=== PATIENT | male | born 1945 | race Caucasian/White ===

== ENCOUNTER 2025-05-01 08:51 | Inpatient (IN) | payer MEDICARE, OTHER, SELFPAY ==
[2025-05-01] VITALS (29 sets, daily range): BP systolic 127–177; BP diastolic 74–110; PULSE 60–77; TEMP 36.5–36.8; O2SAT 94–99; BMI 20.1; BMI 21.0
--- NOTE | 2025-05-01 09:22 | XR_ITS ---
The [place] [id number] Patient Name: EMELY BETANCOURT MRN: [id number] date: 1945 Sex: M Assigned Patient Location: ER Current Patient Location: ER Accession/Order Number: [id number] Exam Date: 05/01/2025 09:25 Report Date: 05/01/2025 09:59 At the request of: OSBALDO TAI DO Procedure: XR chest 1V PORTABLE AP ERECT CHEST 0912 hours CLINICAL HISTORY: altered mental status and generalized weakness COMPARISON: None The heart is top normal in size. There is no vascular congestion. No consolidation is visualized. There is no effusion or pneumothorax. The bony structures are osteopenic. There is potential slight scoliotic curvature. XR/XR chest 1V IMPRESSION: NO ACUTE FINDINGS Impression dictated by: Caridad Dumas M.D. 05/01/2025 9:59 AM Dictation Location: [place] [address] Electronically authenticated by: [id number] Y Date: 05/01/2025 09:59
--- NOTE | 2025-05-01 09:22 | ECG_ITS ---
The [facility] Test Date: 2025-05-01 Pat Name: Twan Yoon Department: Room: - Gender: Male [employer] Drawer: : 1945 Requested By: [id number] Order Number: [id number] Reading MD: KAJAL NICE M.D. Measurements Intervals [place] Rate: 69 P: 67 MI: 194 QRS: 51 QRSD: 94 T: 63 QT: 398 QTc: 417 Interpretive Statements 1100 Sinus rhythm 9110 normal ECG No previous ECG available for comparison Electronically Signed On 05-01-2025 20:55:24 EST by KAJAL NICE M.D.
--- NOTE | 2025-05-01 09:22 | CT_ITS ---
The [address] [address] Patient Name: EMELY BETANCOURT MRN: [id number] date: 1945 Sex: M Assigned Patient Location: ER Current Patient Location: ER Accession/Order Number: [id number] Exam Date: 05/01/2025 09:25 Report Date: 05/01/2025 09:59 At the request of: OSBALDO TAI DO Procedure: CT stroke head/brain wo con CT BRAIN WITHOUT CONTRAST - stroke alert: CLINICAL HISTORY: altered mental status with confusion. Generalized weakness. COMPARISON: None TECHNIQUE: Contiguous axial unenhanced images were obtained through the brain. This CT exam was performed using one or more following dose reduction techniques: Automated exposure control, adjustment of the mA and/or kV according to patient size, or use of iterative reconstruction technique. FINDINGS: There is generalized atrophy. The ventricles are normal in size and position. Chronic microvascular changes are noted including an old left basal ganglia lacunar infarct. No obvious acute cortical infarct is seen. There is no hemorrhage, mass effect or extra-axial collections. There is mild ethmoid and minimal sphenoid mucosal thickening. The imaged mastoid air cells are clear. There is some carotid siphon and vertebral artery plaque. CT/CT stroke head/brain wo con IMPRESSION: ATROPHY AND CHRONIC MICROVASCULAR CHANGES. NO DEFINITE ACUTE INTRACRANIAL ABNORMALITY. FOLLOW-UP IS RECOMMENDED, SYMPTOMS WARRANT. Comment: Preliminary report was provided to Dr Salomon Najera at 0755 hours Impression dictated by: Caridad Dumas M.D. 05/01/2025 9:59 AM Dictation Location: [place] [address] Electronically authenticated by: [id number] Y Date: 05/01/2025 09:59
--- NOTE | 2025-05-01 09:25 | ED.AMS1 ---
HPI - Altered Mental Status General Chief Complaint: Altered Mental Status Stated Complaint: CVA LIKE SYMPTOMS Time Seen by Provider: 05/01/25 09:00 Source: patient and family Mode of arrival: Wheelchair History of Present Illness HPI narrative: NIH stroke scale 2 (points lost are for orientation. However, the patient does have dementia and this is his baseline) Last known well April 30, 2025 at 21:00. Patient is not a TNK candidate because he has presented greater than 4.5 hours since his last known well. In summary, the patient is a very pleasant 79-year-old gentleman who has a known past medical history of dementia. He is presenting with his daughter today because she perceives a difference in his mentation. She states he seems more confused than his normal baseline confusion. Every Tuesday, Tuesday, and Tuesday, the patient goes [facility]. The bus comes and picks him up. He knows that he is supposed to have had an gloves before he goes. She asked him to go get his gloves and he retrieved the slippers. Then, he asked where his cane was when he had it in his hand. Daughter states that she feels like his right side is weak because he is leaning to the right when he walks with his cane. Patient however states he is just all over a week. Patient had an unremarkable day yesterday. Now, he is mumbling more than normal. He did however eat a good breakfast. Related Data Home Medications ?Medication ?Instructions ?Recorded ?Confirmed buspirone 10 mg tablet 20 mg PO TID 05/01/25 05/01/25 donepezil 10 mg tablet 23 mg PO DAILY 05/01/25 05/01/25 lamotrigine 200 mg tablet mg 05/01/25 omeprazole 20 mg capsule,delayed mg 05/01/25 release quetiapine 200 mg tablet mg 05/01/25 sertraline 100 mg tablet mg 05/01/25 trazodone 100 mg tablet mg 05/01/25 Allergies Allergy/AdvReac Type Severity Reaction Status Date / Time No Known Drug Allergies Allergy Verified 05/01/25 09:01 Review of Systems ROS Narrative 10 Systems were reviewed, and unless noted in the HPI, all other systems are reviewed, unremarkable, or noncontributory. Exam Narrative Exam Narrative: Prior to examining the patient, I have washed with hospital approved and provided Antiseptic [employer] and have also applied gloves.? Prior to touching the patient, I asked for consent to examine the patient.? General: Alert and oriented to self and medical facility, well nourished, mild distress. Eye: PERRL, EOMI, normal conjunctiva. 2 mm and nonreactive on the right, 3 mm and reactive on the left. Patient is wearing glasses. HENT: Normocephalic, normal hearing, moist oral mucosa, no scleral icterus, no sinus tenderness. Neck: Supple, non-tender, no carotid bruits, no JVD, no lymphadenopathy. Lungs: Clear to auscultation and percussion, non-labored respiration. No rhonchi, rales, wheezing Heart: Normal rate, regular rhythm, no murmur, gallop or edema. Abdomen: Soft, non-tender, non-distended, normal bowel sounds, no masses. Musculoskeletal: Normal range of motion and strength, no tenderness or swelling. Skin: Skin is warm, dry and pink, no rashes or lesions. Neurologic: Awake, alert, and oriented X2, CN II-XII intact. NIH stroke scale 2 losing points for orientation. Psychiatric: Cooperative, appropriate mood and affect.? Following the conclusion of the examination, I have washed my hands thoroughly after removing examination gloves. Constitutional Vital Signs, click to edit/add: Last Vital Signs Temp 98.2 F 05/01/25 09:02 Pulse 69 05/01/25 09:41 Resp 16 05/01/25 09:41 BP 161/74 H 05/01/25 13:30 Pulse Ox 99 05/01/25 13:30 O2 Del Method Room Air 05/01/25 09:02 Course Course Hospital Course: In summary the patient is a 79-year-old male whom has acute onset of mental status changes. Is brought in by his daughter. Patient could potentially have a stroke versus an infectious etiology owing to his abrupt change in mentation. Therefore, the patient is getting blood work, urinalysis, and a CT scan of the head. Will also get a chest x-ray. CT scan of the head was negative. Chest x-ray is negative. Laboratories are unremarkable. Discussion with the hospitalist who is prospectively requested a CTA of the head and neck. These were negative. Patient was admitted for mental status change and weakness. Consultations Consultation #1: Discussed this case with the hospitalist who indicated if the CTA of the head and neck were negative for any obvious strokes that he would be happy to admit the patient here. Family updated by me. Time: 11:44 Consultation #2: CTA of the head and neck were negative. Therefore the patient can be admitted to the floor for mental status change and continued stroke workup. Time: 13:18 Vital Signs Vital signs: Vital Signs Temperature 98.2 F 05/01/25 09:02 Pulse Rate 77 05/01/25 09:02 Respiratory Rate 16 05/01/25 09:02 Blood Pressure 144/85 H 05/01/25 09:02 Pulse Oximetry 99 05/01/25 09:02 Oxygen Delivery Method Room Air 05/01/25 09:02 Temperature 98.2 F 05/01/25 09:02 Pulse Rate 69 05/01/25 09:41 Respiratory Rate 16 05/01/25 09:41 Blood Pressure 161/74 H 05/01/25 13:30 Pulse Oximetry 99 05/01/25 13:30 Oxygen Delivery Method Room Air 05/01/25 09:02 MDM - Altered Mental Status MDM Narrative Medical decision making narrative: The patient is a 79-year-old male presenting to the emergency department secondary to altered level of consciousness. Patient has had a history of dementia but has had a pronounced decline in his cognition and strength since 9 PM last night. Differential Diagnosis Differential diagnosis: Likely alcoholic intoxication, altered mental status, delirium, dementia, hypoglycemia, hyponatremia, subarachnoid hemorrhage, sepsis and OTHER (Stroke) Medical Records Attestation: I reviewed the patient's medical records. Lab Data Attestation: I reviewed the patient's lab results. Lab results narrative: CBC revealed no evidence of anemia or leukocytosis. Competence of metabolic panel revealed no electrolyte, kidney, or liver dysfunction. Patient's troponin is negative and urinalysis is negative. Labs: Lab Results 05/01/25 05/01/25 05/01/25 Range/Units 09:03 09:37 10:39 WBC 4.5 (4.0-11.0) 10^3/uL RBC 4.43 L (4.70-6.10) 10^6/uL Hgb 14.2 (14.0-18.0) g/dL Hct 43.0 (42.0-54.0) % MCV 97.1 H (80.0-94.0) fL MCH 32.1 (25.9-34.0) pg MCHC 33.0 (29.9-35.2) g/dL RDW 13.0 (11.0-15.0) % Plt Count 203 (150-450) 10^3/uL MPV 10.1 (9.5-13.5) fL Neut % (Auto) 63.5 (43.0-75.0) % Lymph % (Auto) 24.1 (20.5-60.0) % [place] % (Auto) 9.3 (1.7-12.0) % Eos % (Auto) 2.2 (0.9-7.0) % Baso % (Auto) 0.9 (0.2-2.0) % Neut # (Auto) 2.9 (1.4-6.5) 10^3/uL Lymph # (Auto) 1.1 L (1.2-3.8) 10^3/uL [place] # (Auto) 0.4 (0.3-0.8) 10^3/uL Eos # (Auto) 0.1 (0.0-0.7) 10^3/uL Baso # (Auto) 0.0 (0.0-0.1) 10^3/uL Abs Immat Gran (auto) 0.00 (0.00-0.03) 10^3/uL Imm/Tot Granulo (auto) 0.0 (0.0-0.5) % Sodium 145 (136-145) mmol/L Potassium 3.9 (3.5-5.1) mmol/L Chloride 106 (98-107) mmol/L Carbon Dioxide 32.3 H (21.0-32.0) mmol/L Anion Gap 10.6 BUN 18.0 (7.0-18.0) mg/dL Creatinine 0.97 (0.70-1.30) mg/dL Est GFR ( Amer) >60 (>=60 mL/min/1.73m^2) Est GFR (Non-Af Amer) >60 (>=60 mL/min/1.73m^2) BUN/Creatinine Ratio 18.6 Glucose 121 H (74-106) mg/dL Calcium 9.0 (8.5-10.1) mg/dL Total Bilirubin 0.5 (0.2-1.0) mg/dL AST 17 (15-37) U/L ALT 26 (16-63) U/L Alkaline Phosphatase 85 (46-116) U/L Troponin I High Sens 14.6 (4.0-76.1) pg/mL Total Protein 6.9 (6.4-8.2) g/dL Albumin 3.5 (3.4-5.0) g/dL Globulin 3.4 g/dL Albumin/Globulin Ratio 1.0 Urine Color Lt. yellow (YELLOW) Urine Clarity Clear (CLEAR) Urine pH 7.0 (5.0-9.0) Ur Specific [place] 1.020 (1.005-1.025) Urine Protein Negative (NEG/TRACE) mg/dL Urine Glucose (UA) Negative (NEGATIVE) mg/dL Urine Ketones Negative (NEGATIVE) mg/dL Urine Occult Blood Negative (NEGATIVE) Urine Nitrite Negative (NEGATIVE) Urine Bilirubin Negative (NEGATIVE) Urine Urobilinogen 0.2 (0.2-1.0) EU/dL Ur Leukocyte Esterase Negative (NEGATIVE) POC Glucose 111 H (74-106) mg/dL Imaging Data CT scan - head: Attestation: I have reviewed the pertinent imaging results. Radiologist's impression: ITS Impressions Brain CT 05/01/25 09:22 IMPRESSION: ATROPHY AND CHRONIC MICROVASCULAR CHANGES. NO DEFINITE ACUTE INTRACRANIAL ABNORMALITY. FOLLOW-UP IS RECOMMENDED, SYMPTOMS WARRANT. Comment: Preliminary report was provided to Dr Salomon Najera at 0755 hours Impression dictated by: Caridad Dumas M.D. 05/01/2025 9:59 AM Dictation Location: [employer] Electronically authenticated by: [id number] Y Date: 05/01/2025 09:59 Chest X-Ray 05/01/25 09:22 IMPRESSION: NO ACUTE FINDINGS Impression dictated by: Caridad Dumas M.D. 05/01/2025 9:59 AM Dictation Location: [employer] Electronically authenticated by: [id number] Y Date: 05/01/2025 09:59 Head CTA 05/01/25 11:43 IMPRESSION: No occlusion, critical stenosis or dissection of the extracranial or intracranial circulation. Impression dictated by: Matthew Bonilla M.D. 05/01/2025 12:43 PM Dictation Location: [facility] Electronically authenticated by: [id number] Y Date: 05/01/2025 12:43 Neck CTA 05/01/25 11:43 IMPRESSION: No occlusion, critical stenosis or dissection of the extracranial or intracranial circulation. Impression dictated by: Matthew Bonilla M.D. 05/01/2025 12:43 PM Dictation Location: [facility] Electronically authenticated by: [id number] Y Date: 05/01/2025 12:43 ECG Data Attestation: I personally reviewed and interpreted this ECG as follows: ECG interpretation date: 05/01/25 ECG interpretation time: 09:46 Interpretation: Twelve-lead EKG reveals a sinus rhythm with a ventricular rate of 69 bpm. The MS interval and QRS duration within normal limits. QTc is not prolonged. Drake is normal. No evidence of ST segment elevation or depression suggestive of infarction or ischemia. Summary: Normal EKG. Critical Care Time Critical Care Time Total Critical Care Time: 35 Attestation: 35 minutes of needed further treatment approach of clinically significant life-threatening mental status changes including stroke. Needed repeat physical examinations and lengthy discussion with the patient's daughter as well as the proposed admitting physicians. Discharge Plan Discharge Chief Complaint: Altered Mental Status Clinical Impression: Altered mental status Qualifiers: Altered mental status type: transient alteration of awareness Qualified Code(s): R40.4 - Transient alteration of awareness Dementia Qualifiers: Dementia type: unspecified type Dementia severity: unspecified severity Patient Disposition: Admitted as Observation Time of Disposition Decision: 13:20 Condition: Fair
[2025-05-01 09:45] LABS: Hematocrit 43.0 % (42.0-54.0); Hemoglobin 14.2 g/dL (14.0-18.0); Immature Granulocytes Abs Auto 0.00 10^3/uL (0.00-0.03); Immature Granulocytes Pct Auto 0.0 % (0.0-0.5); Lymphocytes Absolute Auto 1.1 10^3/uL (1.2-3.8); Mean Corpuscular HGB Conc 33.0 g/dL (29.9-35.2); Mean Corpuscular Hemoglobin 32.1 pg (25.9-34.0); Mean Corpuscular Volume 97.1 fL (80.0-94.0); Platelet Count 203 10^3/uL (150-450); Red Blood Count 4.43 10^6/uL (4.70-6.10); White Blood Count 4.5 10^3/uL (4.0-11.0)
[2025-05-01 10:06] LABS: Alanine Aminotransferase 26 U/L (16-63); Albumin Globulin Ratio 1.0; Albumin Level 3.5 g/dL (3.4-5.0); Alkaline Phosphatase 85 U/L (46-116); Anion Gap 10.6; Aspartate Amino Transferase 17 U/L (15-37); Blood Urea Nitrogen 18.0 mg/dL (7.0-18.0); Calcium 9.0 mg/dL (8.5-10.1); Carbon Dioxide 32.3 mmol/L (21.0-32.0); Chloride 106 mmol/L (98-107); Estimated GFR (African America >60 (>=60 mL/min/1.73m^2); Estimated GFR (Non-African Ame >60 (>=60 mL/min/1.73m^2); Globulin 3.4 g/dL; Glucose 121 mg/dL (74-106); Potassium 3.9 mmol/L (3.5-5.1); Sodium 145 mmol/L (136-145); Total Protein 6.9 g/dL (6.4-8.2)
[2025-05-01 10:46] LABS: Glucose Urine UA NEGATIVE (NEGATIVE)
--- NOTE | 2025-05-01 11:43 | CT_ITS ---
The [address] [address] Patient Name: EMELY BETANCOURT MRN: [id number] date: 1945 Sex: M Assigned Patient Location: ER Current Patient Location: Accession/Order Number: [id number] Exam Date: 05/01/2025 11:50 Report Date: 05/01/2025 12:43 At the request of: OSBALDO TAI DO Procedure: CT angio neck CTA Head and Neck TECHNIQUE: Axial imaging of the head and neck with 2-D and 3-D reconstruction. cc of Isovue-370. The CT exam was performed using one or more the following dose reduction techniques: Automated exposure control, adjustment of the MA and/or Kv according to patient size, or use of the iterative reconstruction technique. Stenoses were measured using the NASCET criteria. COMPARISON: None HISTORY: Increased confusion The visualized aortic arch and great vessels are unremarkable. Subclavian arteries are patent No carotid dissection, critical stenosis or occlusion identified. No vertebral dissection, occlusion or abrupt cut off identified. The carotid siphons and vertebral basilar systems are patent. Mild calcified plaquing. Minimal stenosis. No intracranial aneurysm, dissection, abrupt cut off or critical stenosis identified.. . CT/CT angio head IMPRESSION: No occlusion, critical stenosis or dissection of the extracranial or intracranial circulation. Impression dictated by: Matthew Bonilla M.D. 05/01/2025 12:43 PM Dictation Location: [place] [address] Electronically authenticated by: [id number] Y Date: 05/01/2025 12:43
--- NOTE | 2025-05-01 11:43 | CT_ITS ---
The [address] [address] Patient Name: EMELY BETANCOURT MRN: [id number] date: 1945 Sex: M Assigned Patient Location: ER Current Patient Location: Accession/Order Number: [id number] Exam Date: 05/01/2025 11:50 Report Date: 05/01/2025 12:43 At the request of: OSBALDO TAI DO Procedure: CT angio neck CTA Head and Neck TECHNIQUE: Axial imaging of the head and neck with 2-D and 3-D reconstruction. cc of Isovue-370. The CT exam was performed using one or more the following dose reduction techniques: Automated exposure control, adjustment of the MA and/or Kv according to patient size, or use of the iterative reconstruction technique. Stenoses were measured using the NASCET criteria. COMPARISON: None HISTORY: Increased confusion The visualized aortic arch and great vessels are unremarkable. Subclavian arteries are patent No carotid dissection, critical stenosis or occlusion identified. No vertebral dissection, occlusion or abrupt cut off identified. The carotid siphons and vertebral basilar systems are patent. Mild calcified plaquing. Minimal stenosis. No intracranial aneurysm, dissection, abrupt cut off or critical stenosis identified.. . CT/CT angio neck IMPRESSION: No occlusion, critical stenosis or dissection of the extracranial or intracranial circulation. Impression dictated by: Matthew Bonilla M.D. 05/01/2025 12:43 PM Dictation Location: [place] [address] Electronically authenticated by: [id number] Y Date: 05/01/2025 12:43
--- NOTE | 2025-05-01 13:32 | P.IMHP_ITS ---
Internal Medicine - H&P: HPI History of Present Illness Chief complaint: CVA LIKE SYMPTOMS STROKE LIKE SYMPTOMS Narrative: Twan Yoon is a 79 y/o M, h/o dementia on recently increased dose of donepezil, presented to [facility] on 05/01/2025 due to confusion and gait imbalance as noted by daughter, concern for stroke prompting request for mission for observation. On assessment at bedside on the regular nursing floor, patient resting comfortably in bed, is oriented to hospital but not situation or circumstances that prompted admission. He is able to articulate clearly and follow commands, agreeable to neurologic examination. History obtained from chart and discussion with daughter. Patient was at baseline mentation yesterday evening. which is not oriented to month or year but is able to conduct daily routines without assistance, this morning appeared to be confused, went to grab gloves prior to travel to [facility] but repeatedly grabbed slippers instead, blank expression in response to daughter, as well as leaning to right side during ambulation and slightly unclear speech. Daughter does note recent upper respiratory tract infection in household however no obvious fevers, chills, change in appetite, change in bowel habits. In the emergency room, WBC 4.5, hemoglobin 14.2, platelet count 203, sodium 145, potassium 3.9, BUN 18, creatinine 0.97, glucose 121, UA without evidence of infection, CT head and CTA imaging showed mild microvascular disease but no evidence of stroke or intracranial thrombus, chest x-ray was negative. Review of Systems ROS Status of ROS 10 or more systems reviewed and unremark able except as noted in history and below [facility] Social History Highest level of school completed/degree received: high school graduate Meds Home Medications and Allergies Home Medications ?Medication ?Instructions ?Recorded ?Confirmed ?Type buspirone 10 mg tablet 20 mg PO TID 05/01/25 History donepezil 23 mg tablet 23 mg PO BEDTIME 05/01/25 History lamotrigine 200 mg tablet 200 mg PO BEDTIME 05/01/25 1 07/02/24 History omeprazole 20 mg capsule,delayed 20 mg PO DAILY 05/01/25 History release quetiapine 200 mg tablet 200 mg PO BEDTIME 05/01/25 1 07/02/24 History sertraline 100 mg tablet 100 mg PO BEDTIME 05/01/25 1 07/02/24 History trazodone 100 mg tablet 100 mg PO BEDTIME 05/01/25 1 07/02/24 History Allergies Allergy/AdvReac Type Severity Reaction Status Date / Time No Known Drug Allergies Allergy Verified 05/01/25 09:01 Exam Narrative Exam Narrative: General: cooperative and tired appearing Orientation: alert, awake and oriented x2, to self and hospital, not to year, month, or reason for admission Head: normal to inspection Neck: normal visual inspection Cardio: no JVD, regular rate, regular rhythm Chest palpation & inspection: normal inspection of the chest Resp Effort & Inspection: normal respiratory effort Abd: soft, non-tender, non-distended Extremities: Warm well perfused, no edema Neuro: CN II-XII grossly intact, poor concentration but no clear nystagmus or neglect. No obvious facial droop, strength intact in all 4 extremities, no drift Constitutional Vital Signs, click to edit/add: Last Vital Signs Temp 98.2 F 05/01/25 09:02 Pulse 69 05/01/25 09:41 Resp 16 05/01/25 09:41 BP 127/77 05/01/25 10:31 Pulse Ox 97 05/01/25 10:50 O2 Del Method Room Air 05/01/25 09:02 Internal Medicine - H&P: Reslt Labs Labs: Short CBC 05/01/25 Range/Units 09:37 WBC 4.5 (4.0-11.0) 10^3/uL Hgb 14.2 (14.0-18.0) g/dL Hct 43.0 (42.0-54.0) % Plt Count 203 (150-450) 10^3/uL BMP 05/01/25 09:37 Sodium 145 Potassium 3.9 Chloride 106 Carbon Dioxide 32.3 H BUN 18.0 Creatinine 0.97 Glucose 121 H Calcium 9.0 Liver Function 05/01/25 Range/Units 09:37 Total Bilirubin 0.5 (0.2-1.0) mg/dL AST 17 (15-37) U/L ALT 26 (16-63) U/L Alkaline Phosphatase 85 (46-116) U/L Albumin 3.5 (3.4-5.0) g/dL Urine 05/01/25 Range/Units 10:39 Urine Color Lt. yellow (YELLOW) Urine Clarity Clear (CLEAR) Urine pH 7.0 (5.0-9.0) Ur Specific [place] 1.020 (1.005-1.025) Urine Protein Negative (NEG/TRACE) mg/dL Urine Glucose (UA) Negative (NEGATIVE) mg/dL Assessment and Plan Assessment and Plan (1) Dementia: Qualifiers: Dementia severity: unspecified severity Dementia type: unspecified type (2) Altered mental status: Qualifiers: Altered mental status type: transient alteration of awareness Qualified Code(s): R40.4 - Transient alteration of awareness (3) Hypertension: Plan Twan Yoon is a 79 y/o M, h/o dementia on recently increased dose of donepezil, presented to [facility] on 05/01/2025 due to confusion and gait imbalance as noted by daughter, concern for stroke prompting request for mission for observation. 1. Confusion and gait imbalance in setting of dementia 2. Uncontrolled hypertension - In the emergency room, WBC 4.5, hemoglobin 14.2, platelet count 203, sodium 145, potassium 3.9, BUN 18, creatinine 0.97, glucose 121, UA without evidence of infection, CT head and CTA imaging showed mild microvascular disease but no evidence of stroke or intracranial thrombus, chest x-ray was negative. - No clear neurologic deficits outside of reported baseline confusion/disorientation to year and month - Check TSH, lipid panel, A1c - start amlodipine 5 mg daily for hypertension - Check MRI brain and TTE - teleneurology consult given multiple dementia medications, continue for now but risk of polypharmacy - PT/OT evaluation Diet: regular Daily Labs: CBC, BMP Lines/Drains: PIV DVT ppx: Lovenox Code status: Full, discussed with daughter Cass Yoon Status: observation for stroke rule out, neurology evaluation
[2025-05-01 15:27] LABS: TSH W/ REFLEX FT4 1.510 uIU/mL (0.358-3.740)
[2025-05-01] MEDS: AMLODIPINE BESYLATE 5 MG TABLET PO (16:19)
[2025-05-01] MEDS: ENOXAPARIN SODIUM 40 MG/0.4 ML SYRINGE SUBQ (16:19)
[2025-05-01] MEDS: HYDROXYZINE PAMOATE 25 MG CAPSULE PO (16:19)
[2025-05-01] MEDS: TRAZODONE HCL 50 MG TABLET 100 MG PO (21:35)
[2025-05-01] MEDS: SERTRALINE HCL 100 MG TABLET PO (21:35)
[2025-05-01] MEDS: QUETIAPINE FUMARATE 100 MG TABLET 200 MG PO (21:36)
[2025-05-01] MEDS: DONEPEZIL HCL 10 MG TABLET 20 MG PO (21:36)
[2025-05-01] MEDS: BUSPIRONE HCL 10 MG TABLET 20 MG PO (21:37)
[2025-05-01] MEDS: LAMOTRIGINE 100 MG TABLET 200 MG PO (21:37)
[2025-05-02] VITALS (7 sets, daily range): BP systolic 115–152; BP diastolic 66–85; PULSE 61–80; TEMP 36.4–36.8; O2SAT 92–95; BMI 20.9
[2025-05-02 05:19] LABS: Hematocrit 39.3 % (42.0-54.0); Hemoglobin 13.0 g/dL (14.0-18.0); Immature Granulocytes Abs Auto 0.00 10^3/uL (0.00-0.03); Immature Granulocytes Pct Auto 0.0 % (0.0-0.5); Lymphocytes Absolute Auto 1.6 10^3/uL (1.2-3.8); Mean Corpuscular HGB Conc 33.1 g/dL (29.9-35.2); Mean Corpuscular Hemoglobin 31.7 pg (25.9-34.0); Mean Corpuscular Volume 95.9 fL (80.0-94.0); Platelet Count 206 10^3/uL (150-450); Red Blood Count 4.10 10^6/uL (4.70-6.10); White Blood Count 5.3 10^3/uL (4.0-11.0)
[2025-05-02 05:34] LABS: Anion Gap 8.1; Blood Urea Nitrogen 18.0 mg/dL (7.0-18.0); Calcium 8.7 mg/dL (8.5-10.1); Carbon Dioxide 29.9 mmol/L (21.0-32.0); Chloride 107 mmol/L (98-107); Cholesterol 217 mg/dL (<=200); Estimated GFR (African America >60 (>=60 mL/min/1.73m^2); Estimated GFR (Non-African Ame >60 (>=60 mL/min/1.73m^2); Glucose 103 mg/dL (74-106); HDL Cholesterol 76 mg/dL (40-60); Potassium 4.0 mmol/L (3.5-5.1); Sodium 141 mmol/L (136-145); Triglycerides 101 mg/dL (<=150); VLDL CHOLESTEROL 20.2 mg/dL
[2025-05-02] MEDS: PANTOPRAZOLE SODIUM 40 MG TABLET.DR PO (05:42)
[2025-05-02] MEDS: BUSPIRONE HCL 10 MG TABLET 20 MG PO ×3 (05:43→21:49)
[2025-05-02] MEDS: AMLODIPINE BESYLATE 5 MG TABLET PO (08:54)
--- NOTE | 2025-05-02 09:34 | MR_ITS ---
The [address] [address] Patient Name: EMELY BETANCOURT MRN: [id number] date: 1945 Sex: M Assigned Patient Location: [place] Current Patient Location: [place] Accession/Order Number: [id number] Exam Date: 05/02/2025 09:50 Report Date: 05/02/2025 11:37 At the request of: REKHA THOMPSON MD Procedure: MR head/brain wo con EXAMINATION: MRI OF THE BRAIN WITHOUT CONTRAST CLINICAL HISTORY: confusion, stroke-like symptoms COMPARISON: CT 05/01/2025 TECHNIQUE: Multiecho, multiplanar imaging of the brain was performed without enhancement. Generalized atrophy is noted. The ventricles are normal in size and position. Mild patchy areas of increased T2 and FLAIR signal are seen within the periventricular and subcortical white matter with extension into the basal ganglia region compatible with chronic microvascular disease. There are no additional areas of abnormal signal intensity within the supra- or infratentorial brain. No restricted diffusion is identified to suggest a recent ischemic event. There are no extra-axial collections or mass effect. There is bilateral maxillary and ethmoid mucosal thickening. MR/MR head/brain wo con IMPRESSION: ATROPHY AND CHRONIC MICROVASCULAR DISEASE. MILD CHRONIC SINUSITIS. NO ACUTE INTRACRANIAL FINDINGS. Impression dictated by: Caridad Dumas M.D. 05/02/2025 11:37 AM Dictation Location: [place] [address] Electronically authenticated by: [id number] Y Date: 05/02/2025 11:37
--- NOTE | 2025-05-02 10:30 | CM.NOTE ---
Rounds made with Dr. Ochoa, discussed plan of care with pt and daughter. PT and OT will evaluate pt for discharge planning. Awaiting MRI results and teleneuro consult for further recommendations.
--- NOTE | 2025-05-02 11:51 | NUTR.NU ---
Recommend nutritional supplement Boost or ensure 1 container po daily for additional nutritional support
--- NOTE | 2025-05-02 13:13 | P.IMPN_ITS ---
Progress Note: A&P Assessment and Plan (1) Dementia: Qualifiers: Dementia severity: unspecified severity Dementia type: unspecified type (2) Altered mental status: Qualifiers: Altered mental status type: transient alteration of awareness Qualified Code(s): R40.4 - Transient alteration of awareness (3) Hypertension: (4) Hypertensive encephalopathy: (5) Ataxia: Rani Yoon is a 79 y/o M, h/o dementia on recently increased dose of donepezil, presented to [facility] on 05/01/2025 due to confusion and gait imbalance as noted by daughter, concern for stroke prompting request for mission for observation. 1. Confusion and gait imbalance suspected 2/2 hypertensive encephalopathy - In the emergency room, WBC 4.5, hemoglobin 14.2, platelet count 203, sodium 145, potassium 3.9, BUN 18, creatinine 0.97, glucose 121, UA without evidence of infection, CT head and CTA imaging showed mild microvascular disease but no evidence of stroke or intracranial thrombus, chest x-ray was negative. - No clear neurologic deficits outside of reported baseline confusion/disorientation to year and month - Check TSH 1.510, lipid panel cholesterol 217, A1c 5.4 - continue amlodipine 5 mg daily for hypertension - MRI brain shows no acute event, did not tolerate entire study and as a result unable to r/o amyloid disease - teleneurology consulted and recommended EEG, repeat MRI as outpatient and follow up with neurology - given significant drop after initiation of blood pressure medication, will monitor additional day to ensure tolerance/assess need for dose reduction Diet: regular Daily Labs: CBC, BMP Lines/Drains: PIV DVT ppx: Lovenox Code status: Full, discussed with daughter Cass Yoon Status: inpatient for hemodynamic and mental status monitoring after initiation of anti-hypertensives Internal Medicine - PN: Subj Subjective Interval history: Completed MRI this am, did not tolerate complete study but enough to rule out acute ischemic event. Daughter at bedside, patient reports no changes in vision or mentation, does recall meeting me yesterday. Remains oriented to self and building but not time or season. Exam Narrative Exam Narrative: General: cooperative and tired appearing Orientation: alert, awake and oriented x2, self and hospital but not situation Head: normal to inspection Neck: normal visual inspection Cardio: no JVD, regular rate, regular rhythm Chest palpation & inspection: normal inspection of the chest Resp Effort & Inspection: normal respiratory effort Abd: soft, non-tender, non-distended Extremities: Warm well perfused, no edema Neuro: CN II-XII no gross weakness Constitutional Vital Signs, click to edit/add: Last Vital Signs Temp 98.3 F 05/02/25 12:00 Pulse 67 05/02/25 12:00 Resp 18 05/02/25 12:00 BP 115/73 05/02/25 12:00 Pulse Ox 95 05/02/25 12:00 O2 Del Method Room Air 05/02/25 12:00 Internal Medicine - PN: Obj Da Labs Labs: Laboratory Results - last 24 hr 05/01/25 05/02/25 14:53 04:49 WBC 5.3 RBC 4.10 L Hgb 13.0 L Hct 39.3 L MCV 95.9 H MCH 31.7 MCHC 33.1 RDW 12.8 Plt Count 206 MPV 10.6 Neut % (Auto) 52.2 Lymph % (Auto) 30.6 [place] % (Auto) 12.1 H Eos % (Auto) 4.0 Baso % (Auto) 1.1 Neut # (Auto) 2.8 Lymph # (Auto) 1.6 [place] # (Auto) 0.6 Eos # (Auto) 0.2 Baso # (Auto) 0.1 Abs Immat Gran (auto) 0.00 Imm/Tot Granulo (auto) 0.0 Sodium 141 Potassium 4.0 Chloride 107 Carbon Dioxide 29.9 Anion Gap 8.1 BUN 18.0 Creatinine 0.73 Est GFR ( Amer) >60 Est GFR (Non-Af Amer) >60 BUN/Creatinine Ratio 24.7 Glucose 103 Estimat Average Glucose 108 Hemoglobin A1c 5.4 Calcium 8.7 Triglycerides 101 Cholesterol 217 H LDL Cholesterol, Calc 121.0 VLDL Cholesterol 20.2 HDL Cholesterol 76 H Cholesterol/HDL Ratio 2.9 TSH & Free T4 Interp 1.510
--- NOTE | 2025-05-02 13:49 | CM.NOTE ---
CM called and spoke with daughter regarding PT and OT recommendations for skilled therapy at discharge. Daughter in agreement for skilled therapy at discharge. 1st choice would be [facility] and 2nd choice [facility]. Discussed with daughter Important Message From Medicare, daughter verbalizes understanding and gives verbal consent to sign over the phone. CM signed form, copy put on pt's chart and pt given original. Updated SW on discharge plan, SW will call [facility] and send referral.
--- NOTE | 2025-05-02 14:24 | SWNOTE1 ---
NINO spoke to CM who spoke to the daughter and pt about SNF. Pt's daughter would like [facility] as first choice and [facility] as second choice. SW to check bed availability. NINO contacted Eric at the [facility] and she will know for sure tomorrow if they have a bed available. Eric requested SW send over referral for them to review and run benefits and then they can touch base tomorrow. Referral sent to [facility]. Referral included face sheet, ED note, H&P, provider notes, case management report, nursing notes, diagnostic imaging, med list, and PT/OT notes.
--- NOTE | 2025-05-02 14:41 | CA_ITS ---
Patient Name: EMELY BETANCOURT MR#: [id number] : 1945 Exam Date: 05/02/2025 Ordering Doctor: REKHA THOMPSON ECHOCARDIOGRAM REPORT PROCEDURE: CA ECHO DOPPLER COMPLETE INDICATIONS: Stroke like symptoms, Mental status changes COMPARISON: None. DESCRIPTION: COMPLETE ECHOCARDIOGRAM Real-time transthoracic echocardiography with 2D, M-mode, spectral and color flow Doppler performed. QUALITY: Technical quality was good. LEFT VENTRICLE: Normal chamber size. Mild concentric hypertrophy. Global left ventricular systolic function is normal. Estimated left ventricular ejection fraction is 65%. LV EF: Normal left ventricular ejection fraction, (>55%). DIASTOLIC: Normal diastolic function. ATRIAL SEPTUM: Agitated saline contrast does not reveal an intra-cardiac shunt. LEFT ATRIUM: Mild dilatation. RIGHT ATRIUM: Mild dilatation. RIGHT VENTRICLE: Normal chamber size. Normal right ventricular systolic function. TRICUSPID VALVE: Normal mobility and thickness. No stenosis with trivial regurgitation. No evidence of pulmonary hypertension. RVSP 25 mmHg. MITRAL VALVE: Normal mobility and thickness. No evidence of mitral valve stenosis. There is no mitral annular calcification. Trivial mitral regurgitation. AORTIC VALVE: Normal trileaflet appearance. Thickened aortic valve. Normal leaflet mobility. No evidence of aortic valve stenosis. Mild aortic regurgitation. AORTIC ROOT: Normal diameter and appearance. The aortic root measures 2.8 cm. The ascending aorta is normal in size measuring 2.9 cm. PULMONIC VALVE: Normal thickness and mobility. No stenosis. Trivial regurgitation. PERICARDIUM: No pericardial effusion. IVC: Collapses with inspirations. The IVC is normal in size measuring 1.1 cm. PLEURA: CONCLUSION: 1. Mild concentric left ventricular hypertrophy with normal systolic function. Estimated LVEF is 65%. 2. Normal right ventricular size and systolic function. 3. Normal diastolic function. 4. Mild biatrial dilatation. 5. Mild aortic regurgitation. 6. Normal right-sided pressures. 7. No evidence of intracardiac shunt by agitated saline contrast injections. Adult Echocardiography Procedure Report Left Ventricle LVEDD (3.7 - 5.6 cm): 4.34 cm LVESD (2.2 - 4.0 cm): 2.95 cm LVIVS thickness (0.6 - 1.2 cm): 1.40 cm LVPW thickness (0.5 - 1.0 cm): 1.11 cm e': 0.10 m/s E - e': 5.54 LVOT Max Gradient: 3.85 mm[Hg] LVOT Area (cm2): 0.98 m/s Peak Velocity (LVOT): 0.98 m/s Mean Velocity (LVOT): 0.66 m/s LVOT Diameter 1.97 cm Left Ventricular Ejection Fraction: 65 % Left Atrium LA Volume Index (2D A2C): 38.85 ml/m2 Left Atrium Systolic Dimension: 3.38 cm Mitral Valve MV E to A Ratio: 0.70 Mitral Valve A-Wave Peak Velocity: 0.78 m/s Mitral Valve E-Wave Peak Velocity: 0.54 m/s Right Ventricle RV Internal Diastolic Dimension: 3.82 cm Aorta AO Root Diam: 2.77 cm Ascending Ao Diam: 2.87 cm Aortic Valve AoV Area (Peak Angel): 2.09 cm2, 2.09 cm2 AoV Area (VTI): 2.40 cm2, 2.40 cm2 Deceleration Vance: 1.21 m/s2 Pressure Half-Time: 917.80 ms Peak Velocity(Antegrade Flow): 1.43 m/s Peak Gradient(Antegrade Flow): 8.22 mm[Hg] Mean Velocity(Antegrade Flow): 0.90 m/s Mean Gradient(Antegrade Flow): 3.90 mm[Hg] Velocity Time Integral: 29.05 cm Tricuspid Valve Peak Velocity (Regurgitant Flow): 2.24 m/s, 2.26 m/s, 2.34 m/s Pulmonic Valve Mean Gradient: 2.57 mm[Hg] Mean Velocity: 0.73 m/s Peak Velocity: 1.12 m/s, 1.40 m/s Peak Gradient: 5.01 mm[Hg], 7.85 mm[Hg] Right Atrium Right Atrium Systolic Pressure: 49.76 ml, 49.76 ml Dictated by: Reggie Powell M.D. on 05/03/2025 at 15:12 Approved by: Reggie Powell M.D. on 05/03/2025 at 15:16
[2025-05-02] MEDS: ASPIRIN 81 MG TABLET.DR PO (15:07)
[2025-05-02] MEDS: ENOXAPARIN SODIUM 40 MG/0.4 ML SYRINGE SUBQ (17:08)
[2025-05-02] MEDS: QUETIAPINE FUMARATE 100 MG TABLET 200 MG PO (21:48)
[2025-05-02] MEDS: LAMOTRIGINE 100 MG TABLET 200 MG PO (21:48)
[2025-05-02] MEDS: TRAZODONE HCL 50 MG TABLET 100 MG PO (21:49)
[2025-05-02] MEDS: SERTRALINE HCL 100 MG TABLET PO (21:49)
[2025-05-02] MEDS: DONEPEZIL HCL 10 MG TABLET 20 MG PO (21:49)
[2025-05-03 04:00] VITALS: BP 136/82; PULSE 68; TEMP 36.4; O2SAT 92
[2025-05-03 05:13] LABS: Hematocrit 39.5 % (42.0-54.0); Hemoglobin 13.4 g/dL (14.0-18.0); Immature Granulocytes Abs Auto 0.01 10^3/uL (0.00-0.03); Immature Granulocytes Pct Auto 0.2 % (0.0-0.5); Lymphocytes Absolute Auto 1.6 10^3/uL (1.2-3.8); Mean Corpuscular HGB Conc 33.9 g/dL (29.9-35.2); Mean Corpuscular Hemoglobin 32.1 pg (25.9-34.0); Mean Corpuscular Volume 94.7 fL (80.0-94.0); Platelet Count 215 10^3/uL (150-450); Red Blood Count 4.17 10^6/uL (4.70-6.10); White Blood Count 5.1 10^3/uL (4.0-11.0)
[2025-05-03 05:30] LABS: Anion Gap 7.2; Blood Urea Nitrogen 17.0 mg/dL (7.0-18.0); Calcium 8.6 mg/dL (8.5-10.1); Carbon Dioxide 29.6 mmol/L (21.0-32.0); Chloride 107 mmol/L (98-107); Estimated GFR (African America >60 (>=60 mL/min/1.73m^2); Estimated GFR (Non-African Ame >60 (>=60 mL/min/1.73m^2); Glucose 103 mg/dL (74-106); Potassium 3.8 mmol/L (3.5-5.1); Sodium 140 mmol/L (136-145)
[2025-05-03] MEDS: PANTOPRAZOLE SODIUM 40 MG TABLET.DR PO (05:37)
[2025-05-03] MEDS: BUSPIRONE HCL 10 MG TABLET 20 MG PO ×3 (05:37→21:13)
[2025-05-03 07:52] VITALS: BP 147/79; PULSE 71; TEMP 36.6; O2SAT 92
--- NOTE | 2025-05-03 07:59 | P.IMPN_ITS ---
Progress Note: A&P Assessment and Plan (1) Dementia: Qualifiers: Dementia severity: unspecified severity Dementia type: unspecified type (2) Altered mental status: Qualifiers: Altered mental status type: transient alteration of awareness Qualified Code(s): R40.4 - Transient alteration of awareness (3) Hypertension: (4) Hypertensive encephalopathy: (5) Ataxia: Plan Twan Yoon is a 79 y/o M, h/o dementia on recently increased dose of donepezil, presented to [facility] on 05/01/2025 due to confusion and gait imbalance as noted by daughter, concern for stroke prompting request for mission for observation. 1. Confusion and gait imbalance suspected 2/2 hypertensive encephalopathy - In the emergency room, WBC 4.5, hemoglobin 14.2, platelet count 203, sodium 145, potassium 3.9, BUN 18, creatinine 0.97, glucose 121, UA without evidence of infection, CT head and CTA imaging showed mild microvascular disease but no evidence of stroke or intracranial thrombus, chest x-ray was negative. - No clear neurologic deficits outside of reported baseline confusion/disorientation to year and month, ataxia - Check TSH 1.510, lipid panel cholesterol 217, A1c 5.4 - continue amlodipine 5 mg daily for now, if SBP > 140 tomorrow will consider uptitration - MRI brain shows no acute event, did not tolerate entire study and as a result unable to r/o amyloid disease - teleneurology consulted and recommended EEG, repeat MRI as outpatient and follow up with neurology - given significant drop after initiation of blood pressure medication, will monitor additional day to ensure tolerance/assess need for dose reduction Diet: regular Daily Labs: CBC, BMP Lines/Drains: PIV DVT ppx: Lovenox Code status: Full, discussed with daughter Cass Yoon Status: inpatient for hemodynamic and mental status monitoring after initiation of anti-hypertensives Internal Medicine - PN: Subj Subjective Interval history: No acute events overnight, remains comfortable and oriented to place, discussed plan for placement to nursing home facility for rehab. Exam Narrative Exam Narrative: General: cooperative and tired appearing Orientation: alert, awake and oriented x2, person and place Head: normal to inspection Neck: normal visual inspection Cardio: no JVD, regular rate, regular rhythm Chest palpation & inspection: normal inspection of the chest Resp Effort & Inspection: normal respiratory effort Abd: soft, non-tender, non-distended Extremities: Warm well perfused, no edema Constitutional Vital Signs, click to edit/add: Last Vital Signs Temp 97.8 F 05/03/25 07:52 Pulse 71 05/03/25 07:52 Resp 16 05/03/25 07:52 BP 147/79 H 05/03/25 07:52 Pulse Ox 92 L 05/03/25 07:52 O2 Del Method Room Air 05/03/25 07:52 Internal Medicine - PN: Obj Da Labs Labs: Laboratory Results - last 24 hr 05/03/25 04:43 WBC 5.1 RBC 4.17 L Hgb 13.4 L Hct 39.5 L MCV 94.7 H MCH 32.1 MCHC 33.9 RDW 12.9 Plt Count 215 MPV 10.6 Neut % (Auto) 51.2 Lymph % (Auto) 32.1 [place] % (Auto) 11.4 Eos % (Auto) 4.3 Baso % (Auto) 0.8 Neut # (Auto) 2.6 Lymph # (Auto) 1.6 [place] # (Auto) 0.6 Eos # (Auto) 0.2 Baso # (Auto) 0.0 Abs Immat Gran (auto) 0.01 Imm/Tot Granulo (auto) 0.2 Sodium 140 Potassium 3.8 Chloride 107 Carbon Dioxide 29.6 Anion Gap 7.2 BUN 17.0 Creatinine 0.70 Est GFR ( Amer) >60 Est GFR (Non-Af Amer) >60 BUN/Creatinine Ratio 24.3 Glucose 103 Calcium 8.6
[2025-05-03] MEDS: AMLODIPINE BESYLATE 5 MG TABLET PO (08:41)
[2025-05-03] MEDS: ASPIRIN 81 MG TABLET.DR PO (08:41)
--- NOTE | 2025-05-03 09:13 | SWNOTE1 ---
SW reached out to Eric and Lisa at the [facility] to see if they are able to accept, SW waiting to hear back.
--- NOTE | 2025-05-03 09:40 | CM.NOTE ---
Rounds made with Dr. Ochoa, discussed plan of care with pt. Plan is to discharge to skilled for rehab.
--- NOTE | 2025-05-03 11:44 | SWNOTE1 ---
SW received a call from Lisa at the [facility] and they can accept.
--- NOTE | 2025-05-03 11:48 | SWNOTE1 ---
NINO called pt's daughter, Cass, and notified her of [facility] accepting for rehab. SW advised no discharge today. NINO and Cass spoke about transportation for the weekend. Daughter will transport him once he is medically stable for discharge. NINO updated the nurse.
[2025-05-03 12:05] VITALS: BP 138/80; PULSE 76; TEMP 36.9; O2SAT 94
[2025-05-03] MEDS: ENOXAPARIN SODIUM 40 MG/0.4 ML SYRINGE SUBQ (16:11)
[2025-05-03 16:12] VITALS: BP 143/75; PULSE 68; TEMP 36.8; O2SAT 95
[2025-05-03 19:28] VITALS: BP 164/89; PULSE 65; TEMP 36.9; O2SAT 93
[2025-05-03] MEDS: TRAZODONE HCL 50 MG TABLET 100 MG PO (21:13)
[2025-05-03] MEDS: QUETIAPINE FUMARATE 100 MG TABLET 200 MG PO (21:13)
[2025-05-03] MEDS: DONEPEZIL HCL 10 MG TABLET 20 MG PO (21:14)
[2025-05-03] MEDS: SERTRALINE HCL 100 MG TABLET PO (21:14)
[2025-05-03] MEDS: LAMOTRIGINE 100 MG TABLET 200 MG PO (21:14)
[2025-05-04 04:00] VITALS: BP 128/76; PULSE 66; TEMP 36.6; O2SAT 93
[2025-05-04 05:46] LABS: Hematocrit 39.5 % (42.0-54.0); Hemoglobin 13.2 g/dL (14.0-18.0); Immature Granulocytes Abs Auto 0.01 10^3/uL (0.00-0.03); Immature Granulocytes Pct Auto 0.2 % (0.0-0.5); Lymphocytes Absolute Auto 1.6 10^3/uL (1.2-3.8); Mean Corpuscular HGB Conc 33.4 g/dL (29.9-35.2); Mean Corpuscular Hemoglobin 31.8 pg (25.9-34.0); Mean Corpuscular Volume 95.2 fL (80.0-94.0); Platelet Count 210 10^3/uL (150-450); Red Blood Count 4.15 10^6/uL (4.70-6.10); White Blood Count 5.5 10^3/uL (4.0-11.0)
[2025-05-04 05:55] LABS: Anion Gap 4.5; Blood Urea Nitrogen 21.0 mg/dL (7.0-18.0); Calcium 8.7 mg/dL (8.5-10.1); Carbon Dioxide 28.6 mmol/L (21.0-32.0); Chloride 107 mmol/L (98-107); Estimated GFR (African America >60 (>=60 mL/min/1.73m^2); Estimated GFR (Non-African Ame >60 (>=60 mL/min/1.73m^2); Glucose 103 mg/dL (74-106); Potassium 4.1 mmol/L (3.5-5.1); Sodium 136 mmol/L (136-145)
[2025-05-04] MEDS: PANTOPRAZOLE SODIUM 40 MG TABLET.DR PO (06:18)
[2025-05-04] MEDS: BUSPIRONE HCL 10 MG TABLET 20 MG PO ×3 (06:18→21:11)
[2025-05-04 07:33] VITALS: BP 106/68; PULSE 66; TEMP 36.6; O2SAT 94
[2025-05-04] MEDS: AMLODIPINE BESYLATE 5 MG TABLET PO (08:35)
[2025-05-04] MEDS: ASPIRIN 81 MG TABLET.DR PO (08:35)
[2025-05-04 10:54] VITALS: BP 123/73; PULSE 72; TEMP 36.6; O2SAT 94
--- NOTE | 2025-05-04 11:00 | PT.DAILY ---
Physical Therapy Daily Note PT Daily Note/Assess Start: 05/02/25 09:52 Freq: Status: Active Protocol: Document 05/04/25 09:53 JUAN (Rec: 05/04/25 11:00 JUAN [id number]) Physical Therapy Daily Note/Assessment Time In/Time Out Time In 09:53 Time Out 09:16 Subjective Subjective Patient agrees to therapy. Denies pain complaints. States he doesn't feel like his balance is getting better. Feels like he is sometimes going to fall when up on feet moving around. Therapeutic Activity Time Therapeutic Activity 10 Minutes (minutes) Therapeutic Activity 1 Units Therapeutic Activity Treatment Bed Mobility Ability Independent Chair Transfer Contact Guard Assist Ability Therapeutic Activity Gait 55' with RW min assist to CGA. Increased Comments assistance required when turning or pivoting. Gait 20' x2 with SC min to mod assist. Sit to stand and step 3x with SC min assist and verbal cues to stay on task eps. with retro stepping. Neuromuscular Reeducation Neuromuscular 13 Reeducation Minutes (minutes) Neuromuscular 1 Reeducation Units Neuromuscular Static and Dynamic balance from modified Rhomberg Reeducation position. Worked on alternating movement patterns with patient demonstrating poor motor planning requiring both tactile and verbal cues to complete tasks correctly. Unsupported seated with reach across body and out of JORGE with cues to stay on task and keep core engaged avoided posterior lean due to weakness. Total Physical Therapy Time Total Therapy 23 Minutes Total Physical 2 Therapy Units Summary Daily Note Summary Gait is improved with RW vs SC at this time. Recommended that patient use RW more until strength and motor planning tasks are improved. Patient required min assist to CGA with gait, increased assistance when needing to turn or maneuver around obstacle. Poor motor planning with designed movement patterns lawrence. with alternating movements or having to reach across body. Patient will benefit from skilled therapy at [place] to improve safety, motor planning, and strength allowing patient to safely return to [facility]. Patient was in bed with rails up, alarm placed, call light in reach and all needs met post RX.
[2025-05-04 12:42] LABS: Glucose Urine UA NEGATIVE (NEGATIVE)
--- NOTE | 2025-05-04 13:56 | PM.IMPN1 ---
Progress Note: A&P Assessment and Plan (1) Dementia: Qualifiers: Dementia severity: unspecified severity Dementia type: unspecified type (2) Altered mental status: Qualifiers: Altered mental status type: transient alteration of awareness Qualified Code(s): R40.4 - Transient alteration of awareness (3) Hypertension: (4) Hypertensive encephalopathy: (5) Ataxia: Plan Acute confusion with gait imbalance, with concern for stroke on presentation. Stroke ruled out by MRI of the brain. Acute confusion and gait imbalance now appears to be DUE TO: Hypertensive encephalopathy. A fair amount of dementia at baseline. Urinary hesitancy and frequency. Plan: Continue the antihypertensive regimen that he is on although will back off on the dose of his new amlodipine. TSH is normal. A1c is quite good at 5.4. Case management has worked on getting him into a care home facility at the time of discharge when he is ready. Will check urinalysis today and nursing staff can intermittently BladderScan him to make sure he is not having acute bladder or urinary retention. Internal Medicine - PN: Subj Subjective Interval history: Today nursing staff noted that the patient seems to be doing well but he seems to have frequent urination. Urinalysis had been checked a few days ago and was negative but nursing staff wants to recheck him today. When I go in to see the patient in the room he is sitting next to the window. He is polite. He is oriented really only to himself. He has no complaints when I ask him about different systems reviews. He denies any difficulty with urination. He denies any difficulty with bowel movements such as being constipated. He has just finished eating a pretty good volume of food for lunch. Reviewing his labs and his vitals today his blood pressure has been very very good over the last couple days. Therefore I have reduced his dose of amlodipine from 5 mg daily down to 2.5 mg daily. Exam Narrative Exam Narrative: General: Sitting up in the chair by the window. Finishing lunch. Psychiatric: Very bright and pleasant affect. Neurologic: Oriented really only to self. Pulmonary: Clear to auscultation throughout. No wheezing. Cardiac: No murmurs to auscultation. GI: Abdomen soft, normal bowel sounds to auscultation. Constitutional Vital Signs, click to edit/add: Last Vital Signs Temp 98 F 05/04/25 10:54 Pulse 72 05/04/25 10:54 Resp 18 05/04/25 10:54 BP 123/73 05/04/25 10:54 Pulse Ox 94 L 05/04/25 10:54 O2 Del Method Room Air 05/04/25 10:54 Internal Medicine - PN: Obj Da Labs Labs: Laboratory Results - last 24 hr 05/04/25 05/04/25 05:18 12:30 WBC 5.5 RBC 4.15 L Hgb 13.2 L Hct 39.5 L MCV 95.2 H MCH 31.8 MCHC 33.4 RDW 13.0 Plt Count 210 MPV 10.9 Neut % (Auto) 53.9 Lymph % (Auto) 28.4 [place] % (Auto) 13.4 H Eos % (Auto) 3.4 Baso % (Auto) 0.7 Neut # (Auto) 3.0 Lymph # (Auto) 1.6 [place] # (Auto) 0.7 Eos # (Auto) 0.2 Baso # (Auto) 0.0 Abs Immat Gran (auto) 0.01 Imm/Tot Granulo (auto) 0.2 Sodium 136 Potassium 4.1 Chloride 107 Carbon Dioxide 28.6 Anion Gap 4.5 BUN 21.0 H Creatinine 0.88 Est GFR ( Amer) >60 Est GFR (Non-Af Amer) >60 BUN/Creatinine Ratio 23.9 Glucose 103 Calcium 8.7 Urine Color Yellow Urine Clarity Clear Urine pH 5.5 Ur Specific [place] 1.025 Urine Protein Negative Urine Glucose (UA) Negative Urine Ketones Negative Urine Occult Blood Negative Urine Nitrite Negative Urine Bilirubin Negative Urine Urobilinogen 0.2 Ur Leukocyte Esterase Negative
[2025-05-04] MEDS: POLYETHYLENE GLYCOL 3350 17 GM POWDER PACKET PO (15:04)
[2025-05-04 16:00] VITALS: BP 133/80; PULSE 70; TEMP 36.7; O2SAT 95
[2025-05-04] MEDS: ENOXAPARIN SODIUM 40 MG/0.4 ML SYRINGE SUBQ (17:36)
[2025-05-04 19:41] VITALS: BP 163/78; PULSE 68; TEMP 36.4; O2SAT 93
[2025-05-04] MEDS: DONEPEZIL HCL 10 MG TABLET 20 MG PO (21:10)
[2025-05-04] MEDS: DOCUSATE SODIUM 100 MG CAPSULE PO (21:10)
[2025-05-04] MEDS: LAMOTRIGINE 100 MG TABLET 200 MG PO (21:11)
[2025-05-04] MEDS: SERTRALINE HCL 100 MG TABLET PO (21:11)
[2025-05-04] MEDS: TRAZODONE HCL 50 MG TABLET 100 MG PO (21:11)
[2025-05-04] MEDS: QUETIAPINE FUMARATE 100 MG TABLET 200 MG PO (21:11)
[2025-05-04 23:27] VITALS: BP 121/68; PULSE 98; O2SAT 92
[2025-05-05 04:00] VITALS: BP 140/84; PULSE 61; TEMP 36.4; O2SAT 94
[2025-05-05] MEDS: BUSPIRONE HCL 10 MG TABLET 20 MG PO (05:57)
[2025-05-05] MEDS: PANTOPRAZOLE SODIUM 40 MG TABLET.DR PO (05:57)
[2025-05-05 06:14] LABS: Hematocrit 41.4 % (42.0-54.0); Hemoglobin 13.6 g/dL (14.0-18.0); Immature Granulocytes Abs Auto 0.01 10^3/uL (0.00-0.03); Immature Granulocytes Pct Auto 0.2 % (0.0-0.5); Lymphocytes Absolute Auto 1.8 10^3/uL (1.2-3.8); Mean Corpuscular HGB Conc 32.9 g/dL (29.9-35.2); Mean Corpuscular Hemoglobin 31.8 pg (25.9-34.0); Mean Corpuscular Volume 96.7 fL (80.0-94.0); Platelet Count 206 10^3/uL (150-450); Red Blood Count 4.28 10^6/uL (4.70-6.10); White Blood Count 5.1 10^3/uL (4.0-11.0)
[2025-05-05 06:23] LABS: Anion Gap 5.2; Blood Urea Nitrogen 19.0 mg/dL (7.0-18.0); Calcium 8.6 mg/dL (8.5-10.1); Carbon Dioxide 32.0 mmol/L (21.0-32.0); Chloride 107 mmol/L (98-107); Estimated GFR (African America >60 (>=60 mL/min/1.73m^2); Estimated GFR (Non-African Ame >60 (>=60 mL/min/1.73m^2); Glucose 99 mg/dL (74-106); Potassium 4.2 mmol/L (3.5-5.1); Sodium 140 mmol/L (136-145)
[2025-05-05 08:03] VITALS: BP 117/76; PULSE 78; TEMP 36.3; O2SAT 93
[2025-05-05] MEDS: AMLODIPINE BESYLATE 5 MG TABLET 2.5 MG PO (08:26)
[2025-05-05] MEDS: ASPIRIN 81 MG TABLET.DR PO (08:26)
[2025-05-05] MEDS: DOCUSATE SODIUM 100 MG CAPSULE PO (08:26)
[2025-05-05] MEDS: POLYETHYLENE GLYCOL 3350 17 GM POWDER PACKET PO (08:26)
[2025-05-05 11:42] VITALS: BP 153/79; PULSE 79; TEMP 36.7; O2SAT 91
--- NOTE | 2025-05-05 11:55 | P.DS_ITS ---
DS: Providers Provider Date of admission: 05/02/25 13:23 Primary care physician: BECCA ANGELES Consults: 05/01/25 15:43 Consult to TeleNeurology Routine Reason for consultation: gait imbalance and confusion in setting of dementia 05/01/25 15:47 Occupational Therapy Eval and Treat Routine Reason for consultation: gait imbalance Physical Therapy Eval and Treat Routine Reason for consultation: gait imbalance DS: Diagnosis Discharge Diagnosis (1) Hypertensive encephalopathy: (2) Dementia: Qualifiers: Dementia severity: severe Dementia type: unspecified type Dementia behavioral or psychological symptom: unspecified whether behavioral, psychotic, or mood disturbance or anxiety Qualified Code(s): F03.C0 - Unspecified dementia, severe, without behavioral disturbance, psychotic disturbance, mood disturbance, and anxiety (3) Altered mental status: Qualifiers: Altered mental status type: transient alteration of awareness Qualified Code(s): R40.4 - Transient alteration of awareness (4) Hypertension: Qualifiers: Hypertension type: primary hypertension Qualified Code(s): I10 - Essential (primary) hypertension (5) Ataxia: Plan Acute confusion, with gait imbalance, presenting with concern for stroke on presentation. Stroke ruled out by MRI of the brain. Acute confusion and gait balance due to hypertensive encephalopathy. Accelerated and uncontrolled hypertension on presentation, and likely at home. Moderately severe dementia at baseline. Patient knows that he lives with his daughter but cannot state the month or the day or the year or the location where he is now or the location where he normally lives. Discharge from the [facility] to a custodial facility. DS: Summary Hospital Course Hospital Course: This is a 79-year-old man who presented with severe confusion and gait ataxia th at was concerning for a stroke. He was admitted to the hospital. He had neurology workup. MRI of the brain did not reveal a stroke. CT angiography of the head neck arterial system did not reveal any large vessel occlusion. His TSH was normal. His lipid panel and cholesterol were normal. His hemoglobin A1c was 5.4. The workup during the hospital stay suggests that the patient's acute confusion and gait instability was due to hypertensive encephalopathy. While he was here his home blood pressure medications were continued and his blood pressure really got a lot better. New amlodipine was started at 5 mg daily and his blood pressure became really quite good so it was reduced down to 2.5 mg daily. The patient does have a lot of dementia. With a lot of help from the nursing staff he can do activities of daily living like feed himself but he requires constant 24-hour supervision. He is really only oriented to self. He has much more dementia present than his age of 79 would suggest. At the end of this hospital stay arrangements were made for the patient to go to a custodial facility. He was accepted at the [facility]. Status at Discharge Functional status at discharge: uses cane/walker Overall status at discharge: patient is progressing back to baseline Time Spent with Patient Time attestation: Total time spent providing and/or coordinating discharge services: 39 minutes. Time spent: greater than 30 minutes Exam Narrative Exam Narrative: Patient is awake. He answers some questions when I asked them. Otherwise he does not engage in conversation. When I ask him what town we are in he says [place]. When I ask him where he lives he says I live with my daughter. When I asked him what town his daughter lives in the patient cannot answer me. He cannot tell me what the day is today or what the month is or what holiday is coming up. Overall this appearance is consistent with moderately severe dementia for which she needs 24-hour a day care and supervision. Pulmonary: Clear to auscultation throughout. No wheezing. No cough. Cardiac: Regular rate and rhythm to auscultation. No murmurs to auscultation. GI: Normal bowel sounds to auscultation. Abdomen is soft and nontender to palpation. Lower extremities: No edema in the ankles. No swelling or knots or cords in the calves bilaterally. Constitutional Vital Signs, click to edit/add: Last Vital Signs Temp 98.1 F 05/05/25 11:42 Pulse 79 05/05/25 11:42 Resp 18 05/05/25 11:42 BP 153/79 H 05/05/25 11:42 Pulse Ox 91 L 05/05/25 11:42 O2 Del Method Room Air 05/05/25 11:42 DS: Data Data Completed and Pending Labs on day of discharge: Labs from last 24 hours 05/05/25 05/04/25 05:28 12:30 WBC 5.1 RBC 4.28 L Hgb 13.6 L Hct 41.4 L MCV 96.7 H MCH 31.8 MCHC 32.9 RDW 13.1 Plt Count 206 MPV 10.7 Neut % (Auto) 48.6 Lymph % (Auto) 34.5 [place] % (Auto) 11.8 Eos % (Auto) 3.7 Baso % (Auto) 1.2 Neut # (Auto) 2.5 Lymph # (Auto) 1.8 [place] # (Auto) 0.6 Eos # (Auto) 0.2 Baso # (Auto) 0.1 Abs Immat Gran (auto) 0.01 Imm/Tot Granulo (auto) 0.2 Sodium 140 Potassium 4.2 Chloride 107 Carbon Dioxide 32.0 Anion Gap 5.2 BUN 19.0 H Creatinine 0.84 Est GFR ( Amer) >60 Est GFR (Non-Af Amer) >60 BUN/Creatinine Ratio 22.6 Glucose 99 Calcium 8.6 Urine Color Yellow Urine Clarity Clear Urine pH 5.5 Ur Specific Eloy 1.025 Urine Protein Negative Urine Glucose (UA) Negative Urine Ketones Negative Urine Occult Blood Negative Urine Nitrite Negative Urine Bilirubin Negative Urine Urobilinogen 0.2 Ur Leukocyte Esterase Negative Discharge Plan Discharge Disposition: Xfer SNF Condition: Fair Discharge Medications: New polyethylene glycol 3350 17 gram Powder In Packet 17 g PO QD Qty: 0 0RF sennosides-docusate sodium 8.6-50 mg Tablet 1 tab PO QD PRN (Reason: Constipation) Qty: 0 0RF amlodipine 5 mg Tablet 2.5 mg PO QD Qty: 0 0RF aspirin 81 mg Tablet,Delayed Release (Dr/Ec) 81 mg PO QD Qty: 0 0RF docusate sodium 100 mg Capsule 100 mg PO BID Qty: 0 0RF hydroxyzine pamoate 25 mg Capsule 25 mg PO TID PRN (Reason: Anxiety) Qty: 0 0RF Continued buspirone 10 mg tablet 20 mg PO TID lamotrigine 200 mg tablet 200 mg PO BEDTIME sertraline 100 mg tablet 100 mg PO BEDTIME quetiapine 200 mg tablet 200 mg PO BEDTIME trazodone 100 mg tablet 100 mg PO BEDTIME omeprazole 20 mg capsule,delayed release(DR/EC) 20 mg PO DAILY donepezil 23 mg tablet 23 mg PO BEDTIME Print Language: Pashto [employer] Supervisor Instructions: Discharge to [facility] skilled Forms: Portal Instructions
== END 2025-05-05 14:15 | DRG 72 ==
LOC: ER 13:24 → MS 14:04
PROVIDERS: Hospitalist; Admitting Provider Student in an Organized Health Care Education/Training Program; Emergency Provider Emergency Medicine; PCP Family Medicine; Visit Provider Student in an Organized Health Care Education/Training Program
DX: I67.4 Hypertensive encephalopathy (principal); I10 Essential (primary) hypertension; F03.C0 Unspecified dementia, severe, without behavioral disturbance, psychotic disturbance, mood disturbance, and anxiety; R39.11 Hesitancy of micturition; R35.0 Frequency of micturition; Z79.899 Other long term (current) drug therapy
CPT/HCPCS: 36415; 70450; 70496; 70498; 70551; 71045; 80048; 80053; 80061; 81003; 83036; 84443; 84484; 85025; 93005; 93306; 95816; 96372; 97110; 97112; 97162; 97165; 97530; 97535; 99285; G0378; J1650; Q0177; Q9967